=== PATIENT | female | born 1985 | race Two or more races ===

== ENCOUNTER 2016-07-03 13:35 | Emergency (ER) | payer SELFPAY ==
[~2016-07-03] VITALS: Ht 154.9 cm; Wt 49.0 kg
[2016-07-03] MEDS ORDERED: METOCLOPRAMIDE 5 MG/ML, 2ML IVPush ONE (15:00)
[2016-07-03] MEDS ORDERED: SODIUM CHLORIDE FLUSH 10ML SYR IVF ONE (15:00)
[2016-07-03] MEDS ORDERED: SODIUM CHLORIDE 0.9% 1,000ML IVBOLUS ONE (15:00)
[2016-07-03] MEDS ORDERED: METOCLOPRAMIDE 5 MG/ML, 2ML ONE (15:05)
[2016-07-03 15:29] LABS: HEMOGLOBIN 12.9 g/dL (11.7-16.4)
[2016-07-03 15:41] LABS: BLOOD UREA NITROGEN 8 mg/dL (7-18)
[2016-07-03 16:35] VITALS: BP 96/50
== END 2016-07-03 16:50 | disposition home or self-care (01) ==
LOC: ED 16:30
DX: O23.11 Infections of bladder in pregnancy, first trimester (principal)
CPT/HCPCS: 36415; 76801; 80048; 81001; 82040; 84702; 85025; 87077; 87086; 87186; 96361; 96374; 99285; J2765; J7030